=== PATIENT | female | born 1965 | race Caucasian/White ===

== ENCOUNTER 2025-03-06 13:46 | Emergency (ER) | payer OTHER ==
--- OUTSIDE RECORDS SUMMARY | 2025-03-06 13:48 | XMS REPORT | Clinical Summary ---
Author Name Unknown Organization [facility] [place] Address [address] [place] [address] Care Team Providers Care Transition Social Worker Name Role Phone NicolDelores MD Primary Care Prov ider JaylenAshutosh saul MD Unavailable [phone] Allergies No known active allergies Medications amlodipine besylate/benazepri l (AMLODIPINE-BENAZE PRIL ORAL) Active escitalopram (LEXAPRO) 20 mg tablet 10/18/2015 Active montelukast (SINGULAIR) 10 mg tablet Active QUEtiapine (SEROquel) 100 mg tablet Active rosuvastatin (CRESTOR) 5 mg tablet Active valACYclovir (VALTREX) 500 mg tablet 01/13/2020 Active Active Problems Problem Noted Date Diagnosed Date Mammography abnormal 01/17/2020 Surgical History Surgery Date Site/Laterality Comments APPENDECTOMY COLONOSCOPY HYSTERECTOMY CHOLECYSTECTOMY SHOULDER SURGERY UPPER GASTROINTESTINAL ENDOSCOPY Medical History Medical History Date Comments Hypertension 1998 Hyperlipidemia 2019 Thrombosis 2010 Gallstone Pancreatitis Depressive disorder 2016 Family History Medical History Relation Name Comments Pancreatic cancer Father Kidney cancer Maternal Aunt Prostate cancer Maternal Grandfather Breast cancer Neg Hx Ovarian cancer Neg Hx Relation Name Status Comments Father Maternal Aunt Maternal Grandfather Social History Tobacco Use Types Packs/Day Years Used Date Smoking Tobacco: Former Cigarettes 0.5 30 0 03/18/1983 - 03/18/2013 Alcohol Use Standard Drinks/Week Comments Not Currently 0 (1 standard drink = 0.6 oz pur e alcohol) Comments Unknown Sex and Gender Information Value Date Recorded Sex Assigned at Female 01/10/2020 3:37 PM CDT Legal Sex Female 3:11 PM CDT Gender Identity Female 01/10/2020 3:37 PM CDT Sexual Orientation Straight 01/10/2020 3: 37 PM CDT Obstetrics History Para Term AB IAB SAB Ectopic Multiple Livin g Live Births 3 2 Date Outcome GA Total Labor Labor/2nd/3rd Weight Sex Type Anes PTL Sheela A1 A5 Name Clin Para Para Comments Menarche: age 13 Menopause: Unknown, hysterectomy age 38s Parity: age 19, : 3 months OCPs - 10 years Hormones - none Plan of Treatment Health Maintenance Due Date Last Done Comments Pneumococcal Vaccine: 50+ Years (1 - PCV) 013 COVID-19 Vaccine ( season) 2025 Influenza Vaccine (#1) 2025 Insurance ACCESS NETWORK GENERIC ACCESS NETWORK GENERIC Care Teams Transition Social Worker Relationship Specialty Start Date End Date Delores Camarena MD [address] [place] [id number] [email or web address] PCP - General Breast Surgery 11/22/19 Ashutosh York MD [address] [place] [id number] @[employer] PCP - External Referring Obstetrics/Gynecology 11/22/19
--- NOTE | 2025-03-06 16:22 | ER ---
Nurse's Notes [facility] Name: Eric Zhao Age: 59 yrs Sex: Female : 1965 Arrival Date: 03/06/2025 Time: 13:46 Bed IW9 Private MD: Diagnosis: Upper abdominal pain, unspecified Presentation: 03/06 13:56 Chief complaint: Patient states: N/V, CHEST PAIN AND HIGH BLOOD PRESSURE THAT BEGAN dd2 YESTERDAY. Coronavirus screen: At this time, the client does not indicate any symptoms associated with coronavirus-19. Ebola Screen: No symptoms or risks identified at this time. Initial Sepsis Screen: Does the patient meet any 2 criteria? No. Patient's initial sepsis screen is negative. Does the patient have a suspected source of infection? No. Patient's initial sepsis screen is negative. Risk Assessment: Do you want to hurt yourself or someone else? Patient reports no desire to harm self or others. Onset of symptoms was March 05, 2025. 13:56 Method Of Arrival: Ambulatory dd2 13:56 Acuity: SELENA 3 dd2 Triage Assessment: 14:00 General: Appears uncomfortable, Behavior is cooperative, appropriate for age, agitated. dd2 Pain: Complains of pain in chest and epigastric area Pain currently is 10 out of 10 on a pain scale. Cardiovascular: Reports chest pain. GI: Reports epigastric pain, nausea, vomiting. Historical: - Allergies: 14:00 No Known Allergies; dd2 - PMHx: 14:00 diabetes mellitus; Hypertensive disorder; Pancreatitis; dd2 - PSHx: 14:00 brain surgery; dd2 - Immunization history:: Adult Immunizations up to date. - Infectious Disease History:: Denies. - Social history:: Smoking status: Patient denies any tobacco usage or history of. Assessment: 15:00 Reassessment: Called to exam room. ER registration staff states that patient left ED. ollie Chavez NP notfiied. Vital Signs: 13:56 BP 141 / 92; Pulse 94; Resp 18; Temp 98.1; Pulse Ox 100% on R/A; Weight 62.6 kg; Height dd2 5 ft. 2 in. ; Pain 10/10; 13:56 Body Mass Index 25.24 (62.60 kg, 157.48 cm) dd2 13:56 Pain Scale: Adult dd2 ED Course: 13:48 Patient arrived in ED. im 13:57 Scott Alfonso FNP-C is PHCP. dr5 13:57 Dorothy Wright MD is Attending Physician. dr5 14:00 Triage completed. dd2 14:00 Arm band placed on. EKG completed in triage. Results shown to MD. dd2 16:28 No provider procedures requiring assistance completed. Patient did not have IV access ss during this emergency room visit. Administered Medications: No medications were administered Outcome: 16:21 Discharge ordered by MD. dr5 16:28 Discharged to home Pt left prior to receiving discharge instructions ss 16:28 Patient left the ED. Signatures: Sepideh Montoya RN RN Carissa Vera JANET VILLAR RN RN dd2 Scott Alfonso FNP-C INDUSTRIAL RELATIONS COMMISSIONER-Cdr5 Corrections: (The following items were deleted from the chart) 15:42 13:56 Chief complaint: Patient states: N/V, CHEST PAIN AND HIGH BLOOD PRESSURE THAT ss BEGAN YESTERDAY. dd2 15:42 15:00 Reassessment: Called to exam room. ER registration staff states that patient left ss ED ss
--- NOTE | 2025-03-06 16:22 | EDPHYS ---
Physician Documentation [facility] Name: Eric Zhao Age: 59 yrs Sex: Female : 1965 Arrival Date: 03/06/2025 Time: 13:46 Bed IW9 Private MD: ED Physician Dorothy Wright HPI: 03/06 14:06 This 59 yrs old Female presents to ER via Ambulatory with complaints of dr5 Nausea/Vomiting, Dizziness. 14:06 The patient presents to the emergency department with nausea, vomiting. Onset: The dr5 symptoms/episode began/occurred yesterday. Patient is a 59-year-old female with history of pancreatitis coming in with upper abdominal pain has been going on since yesterday. Patient reports that she had is having nausea with episodes of vomiting that started worsening this morning. Patient denies chest pain, dysuria, vaginal bleeding, discharge or back pain.. Historical: - Allergies: 14:00 No Known Allergies; dd2 - PMHx: 14:00 diabetes mellitus; Hypertensive disorder; Pancreatitis; dd2 - PSHx: 14:00 brain surgery; dd2 - Immunization history:: Adult Immunizations up to date. - Infectious Disease History:: Denies. - Social history:: Smoking status: Patient denies any tobacco usage or history of. ROS: 14:06 Constitutional: as per hpi dr5 Exam: 14:06 Constitutional: This is a well developed, well nourished patient who is awake, alert, dr5 and in no acute distress. Head/Face: Normocephalic, atraumatic. Eyes: Pupils equal round and reactive to light, extra-ocular motions intact. Lids and lashes normal. Conjunctiva and sclera are non-icteric and not injected. Cornea within normal limits. Periorbital areas with no swelling, redness, or edema. Neck: Trachea midline, no thyromegaly or masses palpated, and no cervical lymphadenopathy. Supple, full range of motion without nuchal rigidity, or vertebral point tenderness. No Meningismus. Chest/axilla: Normal chest wall appearance and motion. Nontender with no deformity. No lesions are appreciated. Cardiovascular: Regular rate and rhythm with a normal S1 and S2. Normal PMI, no JVD. No pulse deficits. Respiratory: Lungs have equal breath sounds bilaterally, clear to auscultation. No rales, rhonchi or wheezes noted. No increased work of breathing, no retractions or nasal flaring. Back: No spinal tenderness. No costovertebral tenderness. Full range of motion. Skin: Warm, dry with normal turgor. Normal color with no rashes, no lesions, and no evidence of cellulitis. MS/ Extremity: Pulses equal, no cyanosis. Neurovascular intact. Full, normal range of motion. Neuro: Awake and alert, GCS 15, oriented to person, place, time, and situation. Cranial nerves II-XII grossly intact. Motor strength 5/5 in all extremities. Sensory grossly intact. Cerebellar exam normal. Normal gait. 14:06 Abdomen/GI: Inspection: abdomen appears normal, Bowel sounds: normal, active, Palpation: moderate abdominal tenderness, in the epigastric area, Vital Signs: 13:56 BP 141 / 92; Pulse 94; Resp 18; Temp 98.1; Pulse Ox 100% on R/A; Weight 62.6 kg; Height dd2 5 ft. 2 in. ; Pain 10/10; 13:56 Body Mass Index 25.24 (62.60 kg, 157.48 cm) dd2 13:56 Pain Scale: Adult dd2 MDM: 13:58 Medical Screening Exam initiated dr5 19:52 Differential diagnosis: Nonspecific abd pain, gastroenteritis, Pancreatitis. dr5 Consideration of Admission/Observation Escalation of care including admission/observation considered. Admission considered if patient found to have elevated lipase. Test considered but Not performed: CT: CT considered but patient left prior to getting in room.. ED course: I saw patient in the ER triage room. Patient was uncomfortable in chair and writhing. EKG was completed with no STEMI noted. Concerns for pancreatitis. I wanted to order labs and get CT scan but patient left prior to getting room. Patient was reporting that she wanted to lay flat and wanted something cold and no beds were available for patient. . 19:53 Data reviewed: vital signs, nurses notes. dr5 03/06 14:05 Order name: IV Saline Lock dr5 03/06 14:05 Order name: Labs collected and sent dr5 03/06 14:08 Order name: EKG - Nurse/Tech dr5 EC:06 Rate is 92 beats/min. Rhythm is regular. QRS [place] is Normal. MS interval is normal at dr5 152 msec. QRS interval is normal at 82 msec. QT interval is normal at 364 msec. Clinical impression: Normal ECG and No evidence of ischemia. Administered Medications: No medications were administered Disposition: 19:15 Co-signature as Attending Physician, Dorothy Wright MD I reviewed the patient's care gb1 provided by the Advanced Practice Provider and agree with the diagnosis and treatment plan. Disposition Summary: 03/06/25 16:21 Discharge Ordered Notes: Location: Home dr5 Condition: Stable dr5 Diagnosis - Upper abdominal pain, unspecified dr5 Followup: dr5 - With: Emergency Department - When: As needed - Reason: Worsening of condition Followup: dr5 - With: Private Physician - When: 1 - 2 days - Reason: Recheck today's complaints, Continuance of care, Re-evaluation by your physician Discharge Instructions: - Discharge Summary Sheet dr5 - Abdominal Pain, Adult dr5 Forms: - Medication Reconciliation Form dr5 - Patient Portal Instructions dr5 - Leadership Thank You Letter dr5 Signatures: Dispatcher [employer] EDMS Dorothy Wright MD MD gb1 JANET VILLAR, RN RN dd2 Scott Alfonso, PLANT ANATOMIST-C PLANT ANATOMIST-Cdr5 Corrections: (The following items were deleted from the chart) 14:06 14:06 CBC+H.LAB.BRZ ordered. EDMS EDMS 14:06 14:06 COMPREHENSIVE METABOLIC PANEL+C.LAB.BRZ ordered. EDMS EDMS 14:06 14:06 LIPASE+C.LAB.BRZ ordered. EDMS EDMS 14:06 14:06 Abdomen Pelvis W Con+CT.RAD.BRZ ordered. EDMS EDMS 14:09 14:09 Troponin High Sensitivity+C.LAB.BRZ ordered. EDMS EDMS
[2025-03-06 16:32] VITALS: BP 141/92; TEMP 98.1; O2SAT 100
== END 2025-03-06 16:28 | disposition home or self-care (01) ==
LOC: ER 13:46
DX: R10.13 Epigastric pain (principal); R11.2 Nausea with vomiting, unspecified
CPT/HCPCS: 93005; 99282